=== PATIENT | male | born 1960 | race Two or more races ===

== ENCOUNTER → 2025-02-24 | Outpatient (CLI) | payer MEDICAID, SELFPAY ==
--- NOTE | 2025-02-24 | XR_ITS ---
Examination: Hand, right 3 views Technique: Hand AP, oblique, lateral 3 views Date and time of exam: February 24, 2025, 1312 hours INDICATIONS: Patient fell 3 months ago with injury to the hand, hand pain. FINDINGS: No acute fracture No dislocation No foreign body Mild osteoarthritis interphalangeal joints IMPRESSION: No acute fracture
== END | disposition home or self-care (01) ==
PROVIDERS: PCP Registered Nurse Community Health; Referring Provider Registered Nurse Community Health; Visit Provider Registered Nurse Community Health
DX: S64.496A Injury of digital nerve of right little finger, initial encounter (principal); S64.494A Injury of digital nerve of right ring finger, initial encounter; W19.XXXA Unspecified fall, initial encounter; G56.91 Unspecified mononeuropathy of right upper limb
CPT/HCPCS: 73130